=== PATIENT | female | born 1945 | race Caucasian/White ===

== ENCOUNTER 2016-11-01 13:23 | Emergency (ER) | payer OTHER, BC ==
--- NOTE | 2016-11-01 13:26 | PDOC ---
History of Present Illness - General History Source: Patient Exam Limitations: No Limitations - History of Present Illness Initial Comments: 11/01/16 14:44 The patient is a 71 year old female with a significant past medical history of hypothyroidism who presents to the emergency department today complaining of sore throat, chest congestion, and cough since one week ago. The patient states that her symptoms are accompanied by fever, chills, and loss of appetite. The patient notes that she has been able to drink some fluids. The patient states that she took a Zpak and tylenol to alleviate symptoms with minimal relief. She state that she never gets the flu shot and that her granddaughter is experiencing similar symptoms. <Timbo Cheng - Last Filed: 11/01/16 15:05> <Lavonne Donovan - Last Filed: 11/01/16 15:14> - General Stated Complaint: COUGH Past History <Timbo Cheng - Last Filed: 11/01/16 15:05> <Lavonne Donovan - Last Filed: 11/01/16 15:14> - Past Medical History Allergies/Adverse Reactions: Allergies Allergy/AdvReac Type Severity Reaction Status Date / Time No Known Allergies Allergy Verified 11/01/16 13:30 Home Medications: Ambulatory Orders Levothyroxine Sodium 75 mcg PO DAILY tablet 08/04/15 Albuterol Sulfate Inhaler - [Ventolin HFA Inhaler -] 1 - 2 inh PO QID PRN #1 inhaler 11/01/16 Prednisone [Deltasone -] 40 mg PO DAILY #8 tablet 11/01/16 Review of Systems - Review of Systems Comments:: 11/01/16 14:45 GENERAL/CONSTITUTIONAL: (+) Fever, chills, loss of appetite and weakness. HEAD, EYES, EARS, NOSE AND THROAT: (+) Sore throat. Change in vision. No ear pain or discharge. CARDIOVASCULAR: (+) Chest congestion. No shortness of breath RESPIRATORY: No cough, wheezing, or hemoptysis. GASTROINTESTINAL: No nausea, vomiting, diarrhea or constipation. GENITOURINARY: No dysuria, frequency, or change in urination. MUSCULOSKELETAL: No joint swelling or pain. No neck or back pain. SKIN: No rash NEUROLOGIC: No headache, vertigo, loss of consciousness, or change in strength/ sensation. ENDOCRINE: No increased thirst. No abnormal weight change. HEMATOLOGIC/LYMPHATIC: No anemia, easy bleeding, or history of blood clots. ALLERGIC/IMMUNOLOGIC: No hives or skin allergy. <Timbo Cheng - Last Filed: 11/01/16 15:05> *Physical Exam - Vital Signs Last Vital Signs Temp Pulse Resp BP Pulse Ox 98.9 F 88 18 148/80 94 L 11/01/16 13:24 11/01/16 13:24 11/01/16 13:24 11/01/16 13:24 11/01/16 13:24 - Physical Exam Comments: 11/01/16 14:46 GENERAL: Awake, alert, and fully oriented, in no acute distress HEAD: No signs of trauma EYES: PERRLA, EOMI, sclera anicteric, conjunctiva clear ENT: Auricles normal inspection, hearing grossly normal, nares patent, Mild throat erythema without exudates. Dry mucosa NECK: Normal ROM, supple, no lymphadenopathy, JVD, or masses LUNGS: Diffuse expiratory bilateral wheezing and slightly decreased air intake HEART: Regular rate and rhythm, normal S1 and S2, no murmurs, rubs or gallops ABDOMEN: Soft, nontender, normoactive bowel sounds. No guarding, no rebound. No masses EXTREMITIES: Normal range of motion, no edema. No clubbing or cyanosis. No cords, erythema, or tenderness NEUROLOGICAL: Cranial nerves II through XII grossly intact. Normal speech, normal gait SKIN: Warm, Dry, normal turgor, no rashes or lesions noted. <Timbo Cheng - Last Filed: 11/01/16 15:05> ED Treatment Course - Medications Given in the ED: ED Medications Discontinued Medications Generic Name Dose Route Start Last Admin Trade Name Freq PRN Reason Stop Dose Admin Albuterol/Ipratropium 1 amp 11/01/16 13:30 11/01/16 13:42 Duoneb - NEB 11/01/16 14:16 1 amp Q15M SHARAN Administration <Timbo Cheng - Last Filed: 11/01/16 15:05> *DC/Admit/Observation/Transfer - Attestations Scribe Attestion: 11/01/16 14:47 Documentation prepared by Timbo Cheng, acting as certified medical records coder for Lavonne Donovan MD. <Timbo Cheng - Last Filed: 11/01/16 15:05> - Discharge Dispostion Admit: No <Lavonne Donovan - Last Filed: 11/01/16 15:14> Diagnosis at time of Disposition: Wheezing - Discharge Dispostion Disposition: HOME Condition at time of disposition: Improved - Prescriptions Prescriptions: Prednisone [Deltasone -] 40 mg PO DAILY #8 tablet Albuterol Sulfate Inhaler - [Ventolin HFA Inhaler -] 1 - 2 inh PO QID PRN #1 inhaler PRN Reason: Short Of Breath/Wheezing - Referrals Referrals: Dewey Avalos MD [Primary Care Provider] - - Patient Instructions Printed Discharge Instructions: DI for Cough -- Adult, DI for Viral Upper Respiratory Infection -- Adult
[2016-11-01] MEDS ORDERED: ALBUTEROL SO4 2.5/IPRATROPIUM 0.5 INH SOL 3 ML VIAL.NEB. NEB SCH (13:30)
[2016-11-01 13:36] VITALS: BP 148/80; PULSE 88; TEMP 98.9; BMI 36.2
[2016-11-01] MEDS ORDERED: ALBUTEROL SO4 2.5/IPRATROPIUM 0.5 INH SOL 3 ML VIAL.NEB. NEB ONE (14:06)
[2016-11-01] MEDS ORDERED: predniSONE 20 MG TABLET (UD) PO ONE (14:07)
[2016-11-01] MEDS ORDERED: guaiFENesin/CODEINE 10 ML UNIT-DOSE CUPS ONE (14:35)
[2016-11-01] MEDS ORDERED: predniSONE 20 MG TABLET (UD) ONE (15:07)
== END 2016-11-01 15:43 | disposition home or self-care (01) ==
LOC: SUPCPDRO 13:23 → FER 13:23
PROC: 3E0F7GC Introduction of Other Therapeutic Substance into Respiratory Tract, Via Natural or Artificial Opening (ICD-10-PCS; principal; 2016-11-01)
DX: R06.2 Wheezing (principal)
CPT/HCPCS: 71020-TC; 94640; 99281-25

== ENCOUNTER 2021-01-01 12:34 | Emergency (ER) | payer OTHER, BC ==
[2021-01-01 13:19] VITALS: BP 156/85; TEMP 98.9; BMI 37.8
[2021-01-01 13:57] LABS: EPITHELIAL CELLS FEW /hpf
[2021-01-01] MEDS ORDERED: ACETAMINOPHEN 1000 MG/100 ML VIAL (NON FORMULARY) IVPB ONE (14:03)
[2021-01-01 14:22] LABS: HEMOGLOBIN 13.4 GM/dl (10.7-15.3)
[2021-01-01 14:23] LABS: HEMATOCRIT 40.3 % (32.4-45.2); MCH 30.8 pg (25.7-33.7); MCHC 33.1 g/dl (32.0-36.0); MEAN PLT VOLUME 7.9 fl (7.5-11.1); PLATELET COUNT 229 K/MM3 (134-434); RBC 4.33 M/mm3 (3.60-5.2); WHITE BLOOD COUNT 14.6 K/mm3 (4.0-10.8)
[2021-01-01 14:37] LABS: ALBUMIN 3.6 g/dl (3.4-5.0); BILIRUBIN,TOTAL 0.9 mg/dl (0.2-1); CALCIUM 8.8 mg/dl (8.5-10); CREATININE 0.9 mg/dl (0.55-1.3); POTASSIUM 3.8 mmol/L (3.5-5.1); TOT PROT 6.9 g/dl (6.4-8.2)
[2021-01-01] MEDS ORDERED: ACETAMINOPHEN INJECTION 100 ML IVPB ONE (14:42)
[2021-01-01 16:54] VITALS: PULSE 97
== END 2021-01-01 17:20 | disposition left against medical advice (07) ==
LOC: FER 12:34
PROC: 3E033GC Introduction of Other Therapeutic Substance into Peripheral Vein, Percutaneous Approach (ICD-10-PCS; principal; 2021-01-01)
DX: R07.9 Chest pain, unspecified (principal)
CPT/HCPCS: 36415; 71275-TC; 80053; 81003; 81015; 82550; 82962; 84484; 85027; 85730; 87086; 93005; 93970-TC; 99285-25; J0131